=== PATIENT | male | born 1930 | race Caucasian/White ===

== ENCOUNTER 2018-03-20 17:53 | Emergency (ER) | payer OTHER, BC ==
--- NOTE | 2018-03-20 18:27 | EDPHY ---
H & P Stated Complaint: tripped fell hit fce lac to mouth/broke tooth/denies loc or neck pain - Personal History Current Tetanus Diphtheria and Acellular Pertussis (TDAP): Yes - Medical/Surgical History Hx Asthma: No Hx Chronic Respiratory Disease: No Hx Diabetes: No Hx Cardiac Disease: Yes Hx Renal Disease: No Hx Cirrhosis: No Hx Alcoholism: No Hx HIV/AIDS: No Other PMH: afib/ r hip replacement - Social History Smoking Status: Never smoked Time Seen by Provider: 03/20/18 18:26 HPI/ROS: CHIEF COMPLAINT: "I tripped and fell down and chipped a tooth and cut my lip" HISTORY OF PRESENT ILLNESS: The patient is an anticoagulated (aspirin) 87 y/o male arriving with his family complaining of facial trauma after a fall this evening. He says "old age" made him fall on the sidewalk as they were walking to a restaurant. His daughter says, "he doesn't pick his feet up a ton when he walks" and it looked like he stumbled on the concrete. He "walked quickly to catch himself," but then fell down and struck his face. He did not lose consciousness and denies abdominal pain, pelvic pain, spinal pain, or extremity injuries. He denies preceding symptoms like chest pain, dyspnea, lightheadedness. No other recent falls. No history of diabetes, cardiac disease , respiratory disease. REVIEW OF SYSTEMS: A ten system review of systems was performed and is negative with the exception of the items mentioned in the HPI. Past medical history: Atrial fibrillation - atenolol, aspirin; viral meningitis 9 years ago Past surgical history: Right hip replacement x2 Family history: Noncontributory Social history: and daughter at bedside. He and his are visiting from [place] and scheduled to leave on Thursday. Nonsmoker. Little alcohol use. Mostly retired, but still manages some rental properties. General Appearance: Alert. Vital signs reviewed. Head: Hematoma/abrasion left cheek. No scalp tenderness, hematoma, or abrasion. No facial bone tenderness. Eyes: Pupils equal and round, no conjunctival injection, no discharge. Anicteric. ENT, Mouth: Mucous membranes are moist, no oropharyngeal erythema or edema. Bruise insideleft lower lip, stellate [id number] laceration through wili boarder to left upper lip. Chipped left upper lateral incisor. No trismus. Left TM no hemotympanum. Cerumen obscuring right TM. No septal hematoma , ecchymosis to both sides of bridge of nose underlying site glasses rest. Neck: Nontender to palpation in the midline and no pain with AROM. Respiratory: Lungs are clear to auscultation; no wheezes, rales, or rhonchi. Cardiovascular: Regular rate and rhythm; no murmur, rub, or gallop. Gastrointestinal: Abdomen is soft and nontender, no masses or organomegaly. Skin: Warm and dry, no rashes on exposed skin, normal color. Back: Nontender to palpation over the thoracolumbar spine. Extremities: No lower extremity edema, no calf tenderness or swelling. Neurological: Alert and oriented. Moving all four extremities easily and equally. Psychiatric: Normal affect. (Cesia Edwards) Constitutional: Initial Vital Signs Temperature (C) 36.6 C 03/20/18 18:08 Heart Rate 80 03/20/18 18:08 Respiratory Rate 18 03/20/18 18:08 Blood Pressure 157/96 H 03/20/18 18:08 O2 Sat (%) 97 03/20/18 18:08 O2 Delivery Mode Room Air Allergies/Adverse Reactions: lactose Allergy (Verified 03/20/18 18:07) Home Medications: Medication Instructions Recorded Aspirin 325 mg (*) 03/20/18 Atenolol 03/20/18 Medical Decision Making Procedures: Procedure: Laceration repair. I was requested by Dr. Edwards to perform wound closure I explained the indications, risks and benefits for both laceration repair and anesthetic administration. Verbal consent was obtained from the patient . The laceration on the left upper lip was anesthetized using 0.5% bupivicaine with epinephrine . After anesthetic administered the patient was observed for a period of time and had no apparent adverse effects. The wound was cleaned, prepped, draped in normal sterile fashion and explored to its base. No foreign body seen, no foreign bodies palpated. Tissue margins were revised by myself. The wound was repaired with 8 simple interrupted 6 0 Prolene sutures. The wound repair was complex. The procedure was performed by myself. Patient has been informed that scarring will occur, although efforts have been made to minimize this. (Linette,D Jaky) ED Course/Re-evaluation: This is a 87 y/o male who presents with facial injuries secondary to a mechanical trip and fall while walking this evening. He has a stellate through- and-through left upper lip laceration that extends through the wili border with a fracture left upper lateral incisor. No indication for neuroimaging at this time. Plan for wound care and laceration repair by DARREL Sue. He takes an aspirin daily, no other anticoagulation. I do not feel that he needs head CT--he has no headache and a normal neuro exam. Laceration repaired, facial abrasions cleaned. Laceration care reviewed. He is ambulating without difficulty and is discharged home. He has already arranged to see a dentist (family friend) tomorrow. (Cesia Edwards) Differential Diagnosis: I considered a ddx of mechanical fall that includes but is not limited to skull fx, ICH, laceration, contusion, abrasion, cervical injury, other fracture such as wrist and hip. (Cesia Edwards) Departure - Departure Disposition: Home, Routine, Self-Care Clinical Impression: Fall Qualifiers: Encounter type: initial encounter Qualified Code(s): W19.XXXA - Unspecified fall, initial encounter Lip laceration Qualifiers: Encounter type: initial encounter Qualified Code(s): S01.511A - Laceration without foreign body of lip, initial encounter Facial contusion Qualifiers: Encounter type: initial encounter Qualified Code(s): S00.83XA - Contusion of other part of head, initial encounter Tooth fracture Qualifiers: Encounter type: initial encounter Fracture type: closed Qualified Code(s): S02.5XXA - Fracture of tooth (traumatic), initial encounter for closed fracture Condition: Good Instructions: Laceration (ED), Fall Prevention for Older Adults (ED), Acute Dental Trauma (ED), Contusion in Adults (ED), Acute Wounds (ED) Additional Instructions: Return to the ED or to your doctor in 5 days for suture removal. Follow up with your dentist in the next 1-2 days. Tylenol and ibuprofen as directed if needed for pain over the next few days. Return to the nearest ED for any worsening of condition. Adult Pain & Fever Control: We recommend Acetaminophen (Tylenol) and Ibuprofen (Motrin,Advil) for pain and fever control. When fever is high or pain severe, both drugs can be used at the same time, but at different intervals. Please note the time differences. Your dose is: Acetaminophen 650mg every 4 to 6 hours Ibuprofen 400mg every 8 hours with food Note: do not take Acetaminophen with Hydrocodone (Vicodin, Lortab) or Oxycodone (Percocet). These medications also contain Acetaminophen. No more than 3000mg of Acetaminophen should be taken in 24 hours (for an adult). Referrals: [facility] [Other] - As per Instructions Report Scribed for: Cesia Edwards Report Scribed by: Kay Norwood Date of Report: 03/20/18 Time of Report: 18:48 Physician Review and Approval Statement: 03/20/18 18:27 Portions of this note were transcribed by the medical biller coder. I, Dr. Cesia Edwards, personally performed the history, physical exam, and medical decision- making; and confirmed the accuracy of the information in the transcribed note. ( Cesia Edwards)
[2018-03-20 19:57] VITALS: BP 157/91
== END 2018-03-20 19:56 | disposition home or self-care (01) ==
PROC: 0CQ0XZZ Repair Upper Lip, External Approach (ICD-10-PCS; principal; 2018-03-20)
DX: S01.511A Laceration without foreign body of lip, initial encounter (principal); S02.5XXA Fracture of tooth (traumatic), initial encounter for closed fracture; W01.0XXA Fall on same level from slipping, tripping and stumbling without subsequent striking against object, initial encounter; Y93.01 Activity, walking, marching and hiking; Y92.480 Sidewalk as the place of occurrence of the external cause